=== PATIENT | female | born 1985 | race Caucasian/White ===

== ENCOUNTER 2016-11-30 20:38 | Emergency (ER) | payer OTHER ==
[~2016-11-30] VITALS: Ht 157.5 cm; Wt 99.8 kg
[~2016-11-30 20:38] MED LIST: LEVOTHYROXINE150 MCG PO; TRIDERM28.4 GM TOP; ULTRAM50 M1 PO
[2016-11-30 20:46] VITALS: BP 158/102
[2016-11-30] MEDS ORDERED: MULTI-DAY VITA1 EACH PO (21:47)
[2016-11-30] MEDS ORDERED: PROGESTERONE100 M2 PO (21:47)
[2016-11-30] MEDS ORDERED: PAIN & FEVER325 M1 PO (21:48)
--- NOTE | 2016-11-30 21:53 | ED SKIN/ALLERGY COMPLAINT ---
History of Present Illness General Chief Complaint: Skin Rash/ Abcess Stated Complaint: BILATERAL ARM RASH PER PT Source: patient Exam Limitations: no limitations Vital Signs & Intake/Output Vital Signs & Intake/Output Vital Signs Date Time Temp Pulse Resp B/P Pulse O2 O2 Flow FiO2 Ox Delivery Rate 11/306 96.0 106 18 158/102 97 Room Air Allergies Coded Allergies: NO KNOWN ALLERGIES (09/10/12) Reconcile Medications Acetaminophen (Pain & Fever) 325 MG TABLET 1 TAB PO PRN PAIN (Reported) Hydrocortisone (Cortizone-10) 1 % OINT...G. 1 HAZEL TOP BID ITCH Levothyroxine Sodium 150 MCG TABLET 1 TAB PO DAILY AC THYROID (Reported) Multivitamin (Multi-Day Vitamins) 1 EACH TABLET 1 TAB PO DAILY SUPPLEMENT ( Reported) Progesterone,Micronized (Progesterone) (Unknown Strength) CAPSULE (Unknown Dose) PO BID HRT- (Reported) Triage Note: PT 13WEEKS TO TRIAGE FOR C/O BURNING RASH TO BILAT UE AND BILAT LE x4DAYS. LAST OBGYN WNL A WEEK AGO. . Triage Nurses Notes Reviewed? yes Onset: Abrupt Duration: day(s): (few) Timing: recent history Severity: mild Location: thighs, forearms No Modifying Factors: none Associated Symptoms: ITCHING, BURNING : Yes Patient currently breastfeeds: No HPI: 31 year old female at 17 weeks gestation presents to the ER with rash to both arms and thighs for a few days. It feels dry and has a tingling sensation to it. No new exposures. No fever or chills. It is not erythematous but feels a a little raised. No rash on palms and soles. No known drug allergies. Past History Travel History Traveled to [place] past 21 day No Medical History Any Pertinent Medical History? see below for history Neurological: NONE EENT: NONE Cardiovascular: NONE Respiratory: NONE Gastrointestinal: NONE Hepatic: NONE Renal: NONE Musculoskeletal: NONE Psychiatric: NONE Endocrine: NONE Tetanus Vaccine: 02/26/16 Surgical History Surgical History: non-contributory Psychosocial History What is your primary language Wolof Tobacco Use: Never used Family History Hx Contributory? No Review of Systems Review of Systems Constitutional: Denies: chills, fever. EENTM: Reports: no symptoms. Respiratory: Denies: cough, short of breath, sputum production. Cardiovascular: Denies: chest pain, palpitations. GI: Denies: abdominal pain, nausea, vomiting. Genitourinary: Reports: no symptoms. Musculoskeletal: Reports: no symptoms. Skin: Reports: see HPI. Neurological/Psychological: Reports: no symptoms. Hematologic/Endocrine: Denies: bruising, bleeding, polyuria, polydipsia. Immunologic/Allergic: Reports: no symptoms. All Other Systems: Reviewed and Negative Physical Exam Physical Exam General Appearance: well developed/nourished, mild distress Head: atraumatic Eyes: Bilateral: PERRL, EOMI. Ears, Nose, Throat: normal pharynx, normal ENT inspection, hearing grossly normal Neck: normal inspection, supple Respiratory: normal breath sounds Cardiovascular: regular rate/rhythm Peripheral Pulses: 2+ radial (R), 2+ radial (L) Gastrointestinal: soft, non-tender Back: normal inspection Extremities: normal inspection, normal range of motion, no edema Neurologic/Psych: awake, alert, oriented x 3, normal mood/affect Lymphatic: no anterior cervical maria guadalupe Progress Differential Diagnosis: allergic reaction, contact dermatitis, urticaria Plan of Care: examination consistent with contact dermatitis. Topical hydrocortisone cream called into pharmacy. Departure Departure Time of Disposition: 2215 Disposition: HOME OR SELF CARE Condition: Stable Clinical Impression Primary Impression: Secondary Impressions: Dermatitis Referrals: PATIENT HAS NO PRIMARY CARE DR (PCP/Family) Additional Instructions: USE THE STEROID OINTMENT DIRECTED AND FOLLOW UP WITH YOUR OBGYN IN THE OFFICE. Departure Forms: Customer Survey General Discharge Information Prescriptions: Current Visit Scripts Hydrocortisone (Cortizone-10) 1 HAZEL TOP BID #1 TUBE
[2016-11-30] MEDS ORDERED: CORTIZONE-1028 G1 TOP (22:16)
== END 2016-11-30 22:26 ==
LOC: ERH 20:38
DX: O99.89 Other specified diseases and conditions complicating pregnancy, childbirth and the puerperium (principal); R21 Rash and other nonspecific skin eruption; Z3A.17 17 weeks gestation of pregnancy

== ENCOUNTER 2017-01-22 08:38 | Emergency (ER) | payer OTHER ==
[~2017-01-22] VITALS: Ht 157.5 cm; Wt 100.7 kg
[~2017-01-22 08:38] MED LIST changes: +CORTIZONE-1028 G1 TOP; +MULTI-DAY VITA1 EACH PO; +PAIN & FEVER325 M1 PO; +PROGESTERONE100 M2 PO
--- NOTE | 2017-01-22 09:21 | ED GENERAL ADULT ---
History of Present Illness General Chief Complaint: General Adult Stated Complaint: ABD PAIN, DIARRHEA, RENAE,SORE THROAT,21 WEEKS PREG Source: patient Exam Limitations: no limitations Vital Signs & Intake/Output Vital Signs & Intake/Output Vital Signs Date Time Temp Pulse Resp B/P B/P Pulse O2 O2 Flow FiO2 Mean Ox Delivery Rate 01/22 1258 97.2 94 20 126/58 98 Room Air 01/22 1113 98.3 88 20 127/60 98 Room Air 01/22 0915 Room Air 01/22 0844 97.4 102 20 153/89 99 Room Air Allergies Coded Allergies: NO KNOWN ALLERGIES (09/10/12) Reconcile Medications Levothyroxine Sodium 150 MCG TABLET 1 TAB PO DAILY AC THYROID (Reported) Multivitamin (Multi-Day Vitamins) 1 EACH TABLET 1 TAB PO DAILY SUPPLEMENT ( Reported) Penicillin V Potassium 500 MG TABLET 1 TAB PO BID STREP THROAT Triage Note: PT TO ED C/O ABD PAIN, N/D X 6 DAYS. PT IS 21 WEEKS . EDC 06/01/17. . [facility]. STATES PAIN COMES AND GOES. WORSE AFTER EATING. DENIES S/S. DENIES VAGINAL BLEEDING OR DISCHARGE. PT ALSO C/O B/L EAR PAIN AND SORE THROAT SINCE YESTERDAY. AFEBRILE. Triage Nurses Notes Reviewed? yes Onset: Abrupt Duration: hour(s): Timing: recent history : Yes Patient currently breastfeeds: No HPI: 01/22/17 9:47 AM 31-year-old female presents to the emergency department complaining of sore throat, diarrhea, generalized abdominal pain. The patient states that she's currently 21 weeks . She says she was in her usual state of health until approximately 48 hours ago. She developed abdominal cramping and diarrhea. She also has nasal congestion and rhinorrhea. She does have a prior history of strep throat. Quick strep test was positive. The onset of the symptoms were abrupt, the duration has been for 48 hours, the severity is significant; as her symptoms required her to come to the emergency department for care. She denies any vaginal bleeding or dysuria. She is a 4 para 3. Past History Travel History Traveled to [place] past 21 day No Medical History Any Pertinent Medical History? see below for history Neurological: NONE EENT: NONE Cardiovascular: NONE Respiratory: NONE Gastrointestinal: NONE Hepatic: NONE Renal: NONE Musculoskeletal: NONE Psychiatric: NONE Endocrine: hypothyroidism Tetanus Vaccine: 02/26/16 Surgical History Surgical History: non-contributory Psychosocial History What is your primary language Urdu Tobacco Use: Quit >30 days ago ETOH Use: denies use Illicit Drug Use: denies illicit drug use Family History Hx Contributory? No Review of Systems Review of Systems Constitutional: Reports: fever, malaise. EENTM: Reports: nasal congestion. Respiratory: Denies: short of breath. Cardiovascular: Denies: chest pain. GI: Denies: abdominal pain. Genitourinary: Reports: no symptoms. Musculoskeletal: Reports: muscle pain. Skin: Denies: rash. Neurological/Psychological: Reports: no symptoms. Hematologic/Endocrine: Denies: bruising, bleeding. Physical Exam Physical Exam General Appearance: well developed/nourished, alert, awake, anxious, mild distress Head: atraumatic, normal appearance Eyes: Bilateral: normal appearance, PERRL, EOMI. Ears, Nose, Throat: pharynx injected with exudates Neck: normal inspection, supple, full range of motion Respiratory: normal breath sounds, chest non-tender, no respiratory distress Cardiovascular: regular rate/rhythm Peripheral Pulses: 4+ radial (R), 4+ radial (L) Gastrointestinal: soft, non-tender, uterus at umbilicus Back: normal range of motion Extremities: normal inspection, normal range of motion, no edema Neurologic/Psych: no motor/sensory deficits, awake, alert, oriented x 3, normal gait Skin: intact, normal color, warm/dry Core Measures ACS in differential dx? No CVA/TIA Diagnosis: No Severe Sepsis Present: No Septic Shock Present: No Progress Differential Diagnoses I considered the following diagnoses in my evaluation of the patient: [ Preeclampsia, strep pharyngitis, pyelonephritis, UTI, threatened , influenza, HELP syndrome.] Plan of Care: Orders Procedure Date/time Status Add-on Test (ER Only) 01/22 1238 Active Add-on Test (ER Only) 01/22 1232 Active CULTURE,URINE 01/22 1213 Active HEPATITIS PANEL 01/22 1000 Complete URINALYSIS 01/23 936 Complete MONOSPOT TEST 01/23 936 Complete COMPREHENSIVE METABOLIC PANEL 01/23 936 Complete CBC WITHOUT DIFFERENTIAL 01/23 936 Complete THROAT CULTURE W/QUICK STREP 01/22 0846 Complete Laboratory Tests 01/22/17 1213: Urine Color YEL, Urine Clarity HAZY H, Urine pH 7.0, Ur Specific [place] 1.020, Urine Protein NEG, Urine Ketones 40 H, Urine Nitrite NEG, Urine Bilirubin NEG, Urine Urobilinogen 0.2, Ur Leukocyte Esterase SMALL H, Ur Microscopic SEDIMENT EXAMINED, Urine RBC 1-3, Urine WBC 3-5 H, Ur Epithelial Cells MANY H, Urine Bacteria MANY H, Urine Mucus RARE, Urine Hemoglobin NEG, Urine Glucose NEG 01/22/17 1000: Anion Gap 11, Estimated GFR > 60, BUN/Creatinine Ratio 14.0, Glucose 80, Calcium 9.2, Total Bilirubin 0.4, AST 67 H, ALT 61 H, Alkaline Phosphatase 88, Total Protein 6.7, Albumin 3.7, Globulin 3.0, Albumin/Globulin Ratio 1.2, CBC w Diff NO MAN DIFF REQ, RBC 4.40, MCV 83.2, MCH 28.2, RDW 13.8, MPV 9.8, Gran % 82.7 H , Lymphocytes % 10.9 L, Monocytes % 4.6, Eosinophils % 1.8, Basophils % 0 L, Absolute Granulocytes 7.3 H, Absolute Lymphocytes 1.0 L, Absolute Monocytes 0.4, Absolute Eosinophils 0.2, Absolute Basophils 0, PUBS MCHC 33.9, Hepatitis A IgM Ab NONREACTIVE, Hep Bs Antigen NONREACTIVE, Hep B Core IgM Ab Conf NONREACTIVE, Hepatitis C Antibody NONREACTIVE 01/22/17 0936: Infectious [place] Titer NEGATIVE Microbiology 01/22 1213 URINE ROUT: Urine Culture - RECD Initial ED EKG: none Departure Departure Disposition: STILL A PATIENT Condition: Stable Clinical Impression Primary Impression: Strep pharyngitis Secondary Impressions: Referrals: PATIENT HAS NO PRIMARY CARE DR (PCP/Family) Departure Forms: Customer Survey General Discharge Information Prescriptions: Current Visit Scripts Penicillin V Potassium 1 TAB PO BID #20 TAB Comments 01/22/17 12:27 pm Ultrasound shows good cardiac activity, right upper quadrant ultrasound negative for cholecystitis. The patient will be discharged on Pen-Vee K for strep pharyngitis. I considered HELP syndrome and preeclampsia. The patient's blood pressure repeated was 120/60, she has no proteinuria. Liver enzymes are only minimally elevated and she has no significant edema. I considered the diagnosis of preeclampsia and help syndrome. The patient's blood pressure is normal on repeat check. She has no proteinuria. 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 Last menstrual period 08/30/2016. COMPARISON: None LMP: 08/30/2016. Gestational age by maternal dates is 20 weeks 5 days. Estimated date of delivery by maternal dates is 06/06/2017. TECHNIQUE: Real time transabdominal imaging with color and M-mode Doppler. POSITION: Vertex PLACENTA: Anterior SAPPHIRE: 18.0 movements were identified. A heart rate is 142 bpm. MEASUREMENTS: biometric measurements are as follows: Biparietal diameter: 5.2 cm (21 weeks 6 days) Occipital Frontal Diameter: 6.62 cm (21 weeks 6 days) Head Circumference: 18.7 cm (21 weeks 1 day) Abdominal Circumference: 16.4 cm (21 weeks 4 days Femur Length: 3.72 cm (21) ESTIMATED WEIGHT: The EFW is 435 grams +/- 64 grams (0 lbs 15 oz +/- 2 oz). This is at the 88 percentile for a gestation of 20 weeks 5 days.. IMPRESSION: Single viable intrauterine gestation in vertex position with anterior placenta. No acute abnormalities are identified. movements are present and heart rate is normal. DICTATED BY: DONALD DAY MD DATE/TIME DICTATED:01/22/171154 TOOL WORKER:HYUN DATE/TIME TRANSCRIBED:01/22/171154 CONFIDENTIAL, DO NOT COPY WITHOUT APPROPRIATE AUTHORIZATION. <Electronically signed in Other Vendor System> SIGNED BY: DONALD DAY MD 01/22/17 1208 Critical Care Note Critical Care Note Critical Care Time: non-applicable
[2017-01-22 10:14] LABS: ABSOLUTE BASOPHIL COUNT 0 /CUMM (0.0-0.2); ABSOLUTE EOSINOPHIL COUNT 0.2 /CUMM (0.0-0.7); ABSOLUTE GRANULOCYTE CT 7.3 /CUMM (1.4-6.5); ABSOLUTE MONOCYTE COUNT 0.4 /CUMM (0.10-0.60); BASOPHIL % 0 % (0.0-2.0); EOSINOPHIL % 1.8 % (0-5); GRANULOCYTE % 82.7 % (42.2-75.2); HEMATOCRIT 36.6 % (37-47); MEAN CORPUSCULAR HGB 28.2 PG (27.0-31.0); MEAN CORPUSCULAR HGB CONC 33.9 G/DL (33.0-37.0); MEAN CORPUSCULAR VOLUME 83.2 FL (81.0-99.0); MEAN PLATELET VOLUME 9.8 FL (7.4-10.4); PLATELET COUNT 205 /CUMM (130-400); RBC DISTRIBUTION WIDTH 13.8 % (11.5-14.5); WHITE BLOOD CELL COUNT 8.8 /CUMM (4.8-10.8)
--- NOTE | 2017-01-22 12:06 | ULTRASOUND REPORT ---
EXAMINATION: US , VIABILITY CLINICAL INFORMATION: 21 weeks . Last menstrual period 08/30/2016. COMPARISON: None LMP: 08/30/2016. Gestational age by maternal dates is 20 weeks 5 days. Estimated date of delivery by maternal dates is 06/06/2017. TECHNIQUE: Real time transabdominal imaging with color and M-mode Doppler. POSITION: Vertex PLACENTA: Anterior SAPPHIRE: 18.0 movements were identified. A heart rate is 142 bpm. MEASUREMENTS: biometric measurements are as follows: Biparietal diameter: 5.2 cm (21 weeks 6 days) Occipital Frontal Diameter: 6.62 cm (21 weeks 6 days) Head Circumference: 18.7 cm (21 weeks 1 day) Abdominal Circumference: 16.4 cm (21 weeks 4 days Femur Length: 3.72 cm (21) ESTIMATED WEIGHT: The EFW is 435 grams +/- 64 grams (0 lbs 15 oz +/- 2 oz). This is at the 88 percentile for a gestation of 20 weeks 5 days.. IMPRESSION: Single viable intrauterine gestation in vertex position with anterior placenta. No acute abnormalities are identified. movements are present and heart rate is normal.
--- NOTE | 2017-01-22 12:12 | ULTRASOUND REPORT ---
EXAMINATION: US ABDOMEN LIMITED CLINICAL INFORMATION: Right upper quadrant pain. History cholelithiasis. COMPARISON: Ultrasound abdomen 05/26/2012, CT abdomen 01/08/2010. TECHNIQUE: Real-time imaging of the right upper quadrant abdominal viscera. FINDINGS: PANCREAS: The pancreatic body appears normal in size and echogenicity. There is no pancreatic ductal distention or retroperitoneal effusion demonstrated. LIVER: The liver is mildly enlarged measuring 20 cm in length. The liver surface is smooth. There is increased hepatic parenchymal echogenicity suggesting of hepatic steatosis. Some minor focal sparing is seen adjacent to the gallbladder fossa. There is no visible focal hepatic parenchymal lesion or intrahepatic biliary ductal dilatation. GALLBLADDER: There are dependent stones in the gallbladder. The gallbladder wall is normal in caliber. There is no subserosal edema or pericholecystic fluid. Negative Street's sign at real-time imaging. COMMON BILE DUCT: Normal in caliber measuring 0.4 cm in diameter. RIGHT KIDNEY: Normal. No hydronephrosis. No renal calculi or focal parenchymal lesions. The kidney measures 12.2 cm in maximum dimension. FREE FLUID: None. IMPRESSION: 1. Cholelithiasis. No gallbladder wall thickening or biliary ductal dilatation. 2. Hepatic steatosis. 3. Unremarkable right kidney. No right hydronephrosis.
[2017-01-22] MEDS ORDERED: PENICILLIN V P500 M1 PO (12:30)
[2017-01-22 12:58] VITALS: BP 126/58
== END 2017-01-22 12:58 ==
LOC: ERH 08:38
PROVIDERS: Emergency Medicine
DX: O99.512 Diseases of the respiratory system complicating pregnancy, second trimester (principal); J02.0 Streptococcal pharyngitis; Z87.891 Personal history of nicotine dependence
CPT/HCPCS: 81001; 87086

== ENCOUNTER → 2017-10-09 | Day surgery (SDC) | payer OTHER ==
[~2017-10-09] VITALS: Ht 154.9 cm; Wt 93.4 kg
[~2017-10-09] MED LIST changes: +EXCEDRIN EXTRA1 EACH PO; +EXTRA STRENGTH500 MG PO; +IBUPROFEN800 M1 PO; +LABETALOL HCL100 M1 PO; +MULTIVITAMINS1 EAC9 PO; +NEXPLANON68 M1; +PENICILLIN V P500 M1 PO; +PREVACID30 M1 PO; +TRI-PREVIFEM T1 EACH PO
--- NOTE | 2017-10-09 09:24 | Operative Report ---
Operative/Inv Procedure Report Surgery Date: 10/09/17 Name of Procedure: 1. Laparoscopic cholecystectomy 2. Core needle biopsy liver Pre-Operative Diagnosis: 1. Biliary colic 2. Richter Post-Operative Diagnosis: Same same Estimated Blood Loss: scant Surgeon/Finisher Merchant Products: Hardik CABRAL,Jewel Genao/Haleigh RUIZ Anesthesia: general endotracheal tube Specimens: Gallbladder Liver Operative/Procedure Note Note: After informed consent patient is brought to the operating room and laid supine. General anesthesia was obtained and her abdomen was prepped and draped. The skin above the umbilicus infiltrated with local anesthesia and a curvilinear incision made sharply. We came down through the subcutaneous tissues bluntly and grasped the fascia with Devin's. A fasciotomy was created sharply and stay sutures placed. The peritoneum was entered sharply and a blunt Dumont port was placed. Pneumoperitoneum was achieved. 3, 5 mm ports were placed in the epigastrium and right upper quadrant after local anesthesia was instilled and under direct vision the camera. She's placed in reverse Trendelenburg and rotated towards the left. The gallbladder is identified. It was grasped at the dome and retracted towards the head. Infundibulum was then grasped. Adhesions to the undersurface were taken down with blunt and cautery dissection. We dissected both sides the triangle Calot peritoneal tissue with cautery. The artery was medial and its normal anatomic position. It was cauterized medially to allow it to be mobilized away from the duct. Elma was cleared of areolar tissue with cautery. The arteries and duct were doubly ligated with clips. Gallbladder is removed from the fossa electrocautery. It was placed in Endo Catch bag and cinched up. 2 core needle biopsy of the liver was then taken using 18-gauge Daniel-Cut through the mid right abdominal port site. Hemostasis achieved with cautery. Right upper quadrant was and suction irrigated normal saline. Hemostasis achieved with cautery. The ports were then removed and the gallbladder delivered and passed off the field. The fascia was closed with 0 Vicryl suture. Skin incisions closed with 4-0 Vicryl. Steri-Strips and sterile dressing applied. Sponge and needle counts are correct. CC: Rito CABRAL,Rito; Tara De Paz APRN
== END ==
LOC: STS 05:03
DX: K80.10 Calculus of gallbladder with chronic cholecystitis without obstruction (principal); K75.81 Nonalcoholic steatohepatitis (NASH); I10 Essential (primary) hypertension; K21.9 Gastro-esophageal reflux disease without esophagitis; E03.9 Hypothyroidism, unspecified
CPT/HCPCS: 81025; 88304; 88307; 88313; C9399; J0131; J0690; J2250

== ENCOUNTER 2018-02-16 12:28 | Emergency (ER) | payer OTHER ==
[~2018-02-16] VITALS: Ht 154.9 cm; Wt 95.3 kg
[2018-02-16 14:59] LABS: ABSOLUTE BASOPHIL COUNT 0 /CUMM (0.0-0.2); ABSOLUTE EOSINOPHIL COUNT 0.3 /CUMM (0.0-0.7); ABSOLUTE GRANULOCYTE CT 7.2 /CUMM (1.4-6.5); ABSOLUTE LYMPH COUNT 2.3 /CUMM (1.2-3.4); ABSOLUTE MONOCYTE COUNT 0.5 /CUMM (0.10-0.60); BASOPHIL % 0.5 % (0.0-2.0); EOSINOPHIL % 3.1 % (0-5); GRANULOCYTE % 69.2 % (42.2-75.2); HEMATOCRIT 40.8 % (37-47); MEAN CORPUSCULAR HGB 25.4 PG (27.0-31.0); MEAN CORPUSCULAR HGB CONC 32.5 G/DL (33.0-37.0); MEAN CORPUSCULAR VOLUME 78.3 FL (81.0-99.0); PLATELET COUNT 369 /CUMM (130-400); RBC DISTRIBUTION WIDTH 16.3 % (11.5-14.5); RED BLOOD CELL CT 5.22 /CUMM (4.20-5.40); WHITE BLOOD CELL COUNT 10.4 /CUMM (4.8-10.8)
--- NOTE | 2018-02-16 15:30 | ED GENERAL ADULT ---
History of Present Illness General Chief Complaint: Abdominal Pain/Flank Pain Stated Complaint: BLOODY STOOL Source: patient, old records Exam Limitations: no limitations Vital Signs & Intake/Output Vital Signs & Intake/Output Vital Signs Date Time Temp Pulse Resp B/P B/P Pulse O2 O2 Flow FiO2 Mean Ox Delivery Rate 02/16 1809 97.8 82 16 135/85 97 Room Air 02/16 1550 98.2 90 20 129/72 100 Room Air 02/16 1509 Room Air Room Air 02/16 1310 96.8 98 20 126/82 99 Room Air Allergies Coded Allergies: NO KNOWN ALLERGIES (NONE 05/28/17) Reconcile Medications Acetaminophen (Extra Strength Non-Aspirin) 500 MG TABLET 2-3 TAB PO PRN PAIN (Reported) Aspirin/Acetaminophen/Caffeine (Excedrin Extra Strength Caplet) 250 MG-250 MG-65 MG TABLET 2 TAB PO PRN MIGRAINES (Reported) Etonogestrel (Nexplanon) 68 MG IMPLANT CONTROL (Reported) Labetalol HCl 100 MG TABLET 1 TAB PO BID BP (Reported) Lansoprazole (Prevacid) 30 MG CAPSULE.DR 1 CAP PO DAILY GI (Reported) Levothyroxine Sodium 150 MCG TABLET 1 TAB PO DAILY AC THYROID (Reported) Multiple Vitamin (Multivitamins) 1 EACH TABLET 1 TAB PO DAILY SUPPLEMENT ( Reported) Norgestimate-Ethinyl Estradiol (Tri-Previfem Tablet) [id number] 28 TABLET 1 TAB PO DAILY CONTROL (Reported) Triage Note: C/O MID ABDOMINAL PAIN INTERMITTATN X 1 WEEK, SEEN HERE 1 WEEK AGO FOR LLQ PAIN, HAD B/W AND CT SCAN DONE. NOW STATES SHE HAD A BLOODY BM 2 DAYS AGOM, TODAY HAD BRIGHT RED RECTAL BLEEDING WITH NAUSEA, DIZZINESS. Triage Nurses Notes Reviewed? yes Onset: Gradual Duration: day(s): (10) Timing: waxing and waning Severity: moderate No Modifying Factors: none : No Patient currently breastfeeds: No HPI: This is a 32-year-old female with history of obesity presenting with 10 days of intermittent cramping poorly localized abdominal pain. Patient was seen in the emergency department last week for similar presentation, underwent CAT scan and ultrasound which were noncontributory. She was discharged home and her cramping pain has persisted, usually occurring about 30-60 minutes after eating. She had some coating of her stool with blood earlier today and then had a worsening of her abdominal pain and subsequently had a large bowel movement with a moderate amount of dark blood. She has had no vaginal bleeding or discharge no dysuria and no fever/chills. She denies chest pain, difficulty breathing or diaphoresis. She does remark that she feels a bit lightheaded. She has a Nexplanon for control (Ronald Oconnor MD) Past History Travel History Traveled to [place] past 21 day No Medical History Any Pertinent Medical History? none Neurological: NONE EENT: NONE Cardiovascular: NONE Respiratory: NONE Gastrointestinal: NONE Hepatic: NONE Renal: NONE Musculoskeletal: NONE Psychiatric: NONE Endocrine: hypothyroidism Tetanus Vaccine: 02/26/16 Surgical History Surgical History: cholecystectomy Psychosocial History What is your primary language Indonesian Tobacco Use: Never used ETOH Use: occasional use Family History Hx Contributory? Yes (grandmother w Crohn's disease) (Ronald Oconnor MD) Review of Systems Review of Systems Constitutional: Reports: no symptoms. EENTM: Reports: no symptoms. Respiratory: Reports: no symptoms. Cardiovascular: Reports: no symptoms. GI: Reports: abdominal pain, nausea, bloody stool, changes in stool. Denies: vomiting. Genitourinary: Reports: no symptoms. Musculoskeletal: Reports: no symptoms. Skin: Reports: no symptoms. Neurological/Psychological: Reports: see HPI. Hematologic/Endocrine: Reports: no symptoms. (Ronald Oconnor MD) Physical Exam Physical Exam General Appearance: well developed/nourished, no apparent distress, alert, awake Head: atraumatic, normal appearance Eyes: Bilateral: normal appearance. Ears, Nose, Throat: normal pharynx, normal ENT inspection Neck: normal inspection, full range of motion Respiratory: normal breath sounds, chest non-tender, no respiratory distress Cardiovascular: regular rate/rhythm Gastrointestinal: soft, poorly localized abdominal ttp; non-peritoneal; no rebound Back: normal inspection Extremities: normal inspection Neurologic/Psych: no motor/sensory deficits, awake, alert, oriented x 3, normal gait, normal mood/affect Skin: intact, warm/dry Comments: Patient has mole, dark brown, guaiac positive stool in vault. No tenderness masses, no obvious hemorrhoids Core Measures ACS in differential dx? No CVA/TIA Diagnosis: No Sepsis Present: No Sepsis Focused Exam Completed? No (Ronald Oconnor MD) Progress Differential Diagnoses I considered the following diagnoses in my evaluation of the patient: Inflammatory bowel disease, infectious colitis, low suspicion for ischemic colitis. Low suspicion for coagulopathy. Doubt primary [employer]ACING [employer]PER[employer]OR process. Lower suspicion for upper GI bleed in this patient. No obvious risk factors for peptic ulcer disease. Plan of Care: Orders Procedure Date/time Status Add-on Test (ER Only) 02/16 1609 Active URINE 02/16 1525 Complete Add-on Test (ER Only) 02/16 1450 Active LIPASE 02/16 1447 Complete HEPATIC FUNCTION PANEL 02/16 1447 Complete URINALYSIS 02/16 1312 Complete CBC WITHOUT DIFFERENTIAL 02/16 1312 Complete BASIC METABOLIC PANEL 02/16 1312 Complete TYPE & SCREEN (NOT X-MATCH) 02/16 1312 Complete Laboratory Tests 02/16/18 1525: Urine Color YEL, Urine Clarity CLEAR, Urine pH 6.5, Ur Specific [place] 1.020, Urine Protein NEG, Urine Ketones NEG, Urine Nitrite NEG, Urine Bilirubin NEG, Urine Urobilinogen 0.2, Ur Leukocyte Esterase TRACE H, Ur Microscopic SEDIMENT EXAMINED, Urine RBC 1-3, Urine WBC 1-3 H, Ur Epithelial Cells MOD H, Urine Bacteria FEW H, Urine Mucus FEW, Urine Hemoglobin NEG, Urine Glucose NEG, Urine Test NEGATIVE 02/16/18 1447: Anion Gap 14, Estimated GFR > 60, BUN/Creatinine Ratio 26.7 H, Glucose 99, Calcium 9.5, Total Bilirubin 0.4, Direct Bilirubin 0.2, AST 20, ALT 42, Alkaline Phosphatase 79, Total Protein 8.1, Albumin 4.7, Lipase 97, CBC w Diff NO MAN DIFF REQ, RBC 5.22, MCV 78.3 L, MCH 25.4 L, MCHC 32.5 L, RDW 16.3 H, MPV 9.0 , Gran % 69.2, Lymphocytes % 22.5, Monocytes % 4.7, Eosinophils % 3.1, Basophils % 0.5, Absolute Granulocytes 7.2 H, Absolute Lymphocytes 2.3, Absolute Monocytes 0.5, Absolute Eosinophils 0.3, Absolute Basophils 0 Initial ED EKG: none Comments: In this otherwise healthy 32-year-old female with 10 days of cramping intermittent abdominal discomfort and no obvious hemodynamic compromise and normal labs, and a repeat normal CAT scan of her abdomen, low suspicion for acute underlying severe GI bleed. Clinically suspect colitis, possibly inflammatory bowel disease. Mild concern for GI cancer. Case is discussed with Dr. Sylvester the on-call for gastroenterology specialists. He agrees with plan for close follow-up with his service. Patient is given follow-up instructions and return precautions. (Ronald Oconnor MD) Departure Departure Disposition: HOME OR SELF CARE Condition: Stable Clinical Impression Primary Impression: Abdominal cramping Secondary Impressions: Bloody stool Referrals: Rito Veras MD (PCP/Family) Departure Forms: Customer Survey General Discharge Information (Ronald Oconnor MD) Resident Co-Sign Statement Statement: ED Attending supervision documentation- I saw and evaluated the patient. I have also reviewed all the pertinent lab results and diagnostic results. I agree with the findings and the plan of care as documented in the Resident's documentation. x I have reviewed the ED Record and agree with the Resident's documentation. [] Additions or exceptions (if any) to the Resident's note and plan are summarized below: [] (Blanche CABRAL,Vlad) Critical Care Note Critical Care Note Critical Care Time: non-applicable (Ronald Oconnor MD) ED Attending Observation Initial Observation Note: I have seen and personally examined CARYN MATAMOROS on 02/16/18 at 1820. I agree with the current emergency department documentation. The disposition (admission or discharge) is uncertain at this time, she needs a period of observation for the following reason(s): The ED Nurse caring for this patient has been personally informed as to what the patient is being observed for. (Ronald Oconnor MD)
--- NOTE | 2018-02-16 17:09 | CT SCAN REPORT ---
EXAMINATION: CT ABDOMEN AND PELVIS WITH CONTRAST CLINICAL INFORMATION: Abdominal pain. Bloody stool. COMPARISON: CT 02/09/2018 TECHNIQUE: Multidetector volumetric imaging was performed of the abdomen and pelvis following IV administration of 95 mL of Optiray 320 intravenous contrast. Sagittal and coronal reformatted images were obtained on the technologist's workstation. DLP: 931 mGy-cm FINDINGS: LUNG BASES: The visualized lung bases are unremarkable. LIVER, GALLBLADDER, AND BILIARY TREE: The liver is relatively low in attenuation. No lesion identified. No intrahepatic biliary dilatation. Gallbladder is surgically absent. PANCREAS: Unremarkable. SPLEEN: The spleen enhances homogeneously and is normal in size. There are 3 enhancing round masses at the inferior pole of the spleen which demonstrate a similar enhancement profile. These are consistent with an old.. ADRENAL GLANDS: Unremarkable. KIDNEYS AND URETERS: The kidneys are normal in size, shape, and attenuation. No hydronephrosis, hydroureter, or calculi seen. No perinephric stranding. BLADDER: Unremarkable. GASTROINTESTINAL TRACT: The small and large bowel are unremarkable. The appendix is unremarkable. ABDOMINAL WALL: No significant hernia is appreciated. LYMPH NODES: Scattered mesenteric lymph nodes which do not meet size compared to for pathology.. VASCULAR: Unremarkable. PELVIC VISCERA: Unremarkable. OSSEOUS STRUCTURES: Unremarkable. IMPRESSION: Hepatic steatosis. No acute intra-abdominal or pelvic findings. Status post cholecystectomy
[2018-02-16 18:09] VITALS: BP 135/85
== END 2018-02-16 18:21 ==
LOC: ERH 12:28
PROVIDERS: Emergency Medicine
DX: K92.1 Melena (principal); R10.84 Generalized abdominal pain
CPT/HCPCS: 74177; 81001; 81025

== ENCOUNTER 2018-03-26 08:41 | Emergency (ER) | payer OTHER ==
[~2018-03-26] VITALS: Ht 154.9 cm; Wt 95.3 kg
--- NOTE | 2018-03-26 09:30 | ED CARDIAC/CP/PALPITATIONS ---
History of Present Illness General Chief Complaint: Chest Pain Stated Complaint: CHEST PAIN RADIATES TO LEFT SHOULDER AND BACK Source: patient Exam Limitations: no limitations Vital Signs & Intake/Output Vital Signs & Intake/Output Vital Signs Date Time Temp Pulse Resp B/P B/P Pulse O2 O2 Flow FiO2 Mean Ox Delivery Rate 03/26 1103 97.8 86 18 120/79 96 03/26 0926 Room Air Room Air 03/26 0852 98.1 113 20 142/92 96 Room Air Allergies Coded Allergies: NO KNOWN ALLERGIES (NONE 05/28/17) Reconcile Medications Cyclobenzaprine HCl 10 MG TABLET 1 TAB PO QPM PRN muscle strain Etonogestrel (Nexplanon) 68 MG IMPLANT CONTROL (Reported) Labetalol HCl 100 MG TABLET 1 TAB PO BID BP (Reported) Lansoprazole (Prevacid) 30 MG CAPSULE.DR 1 CAP PO DAILY GI (Reported) Levothyroxine Sodium 150 MCG TABLET 1 TAB PO DAILY AC THYROID (Reported) Meloxicam (Mobic) 15 MG TABLET 1 TAB PO DAILY PRN pain Triage Note: CP, LEFT SHOULDER PAIN THAT RADIATES DOWN ARM AND BACK X 1 WEEK, STATES PAIN GETTING WORSE. Triage Nurses Notes Reviewed? yes Onset: Gradual Duration: day(s): Timing: recent history Quality/Severity: moderate Location: left chest and back : No Patient currently breastfeeds: No HPI: 32yo female presents to ED complaining of left anterior chest pain and back pain x 1 week. PAtient states her pain has gradually increased over the past several days, worse today. Patient describes pain as sharp, pleuritic, worse with cough. Back pain radiates down left arm. Patient reports cough productive of green sputum for the past several days with mild shortness of breath. She denies fevers, chills, abdominal pain, vomiting. Past History Travel History Traveled to [place] past 21 day No Medical History Any Pertinent Medical History? see below for history Neurological: NONE EENT: NONE Cardiovascular: NONE Respiratory: NONE Gastrointestinal: GERD Hepatic: NONE Renal: NONE Musculoskeletal: NONE Psychiatric: NONE Endocrine: hypothyroidism Tetanus Vaccine: 02/26/16 Surgical History Surgical History: cholecystectomy Psychosocial History What is your primary language Belarusian Tobacco Use: Never used ETOH Use: occasional use Illicit Drug Use: denies illicit drug use Family History Hx Contributory? No Review of Systems Review of Systems Constitutional: Reports: no symptoms. EENTM: Reports: no symptoms. Respiratory: Reports: see HPI. Cardiovascular: Reports: see HPI. GI: Reports: no symptoms. Genitourinary: Reports: no symptoms. Musculoskeletal: Reports: see HPI. Skin: Reports: no symptoms. Neurological/Psychological: Reports: no symptoms. Hematologic/Endocrine: Reports: no symptoms. Immunologic/Allergic: Reports: no symptoms. All Other Systems: Reviewed and Negative Physical Exam Physical Exam General Appearance: well developed/nourished, no apparent distress, alert, awake Head: atraumatic, normal appearance Eyes: Bilateral: normal appearance. Ears, Nose, Throat: hearing grossly normal Neck: normal inspection, supple, full range of motion Respiratory: normal breath sounds, no respiratory distress, lungs clear, left sided anterior chest tenderness Cardiovascular: regular rate/rhythm, normal peripheral pulses Peripheral Pulses: 2+ radial (R), 2+ radial (L) Gastrointestinal: normal bowel sounds, soft, non-tender, no organomegaly Back: normal inspection, normal range of motion, left sided upper back tenderness Extremities: normal inspection, normal range of motion Neurologic/Psych: awake, alert, oriented x 3 Skin: intact, normal color, warm/dry Core Measures ACS in differential dx? Yes CVA/TIA Diagnosis No Sepsis Present: No Sepsis Focused Exam Completed? No Progress Differential Diagnosis: AMI, atrial fibrillation, costochondritis, musculoskeletal pain, myocarditis, pericarditis, pneumonia, pneumothorax, pulmonary embolism, unstable angina Plan of Care: Orders Procedure Date/time Status Add-on Test (ER Only) 03/26 0936 Active D-DIMER 03/26 09 Complete URINE 03/26 912 Complete URINALYSIS 03/26 09 Complete TROPONIN LEVEL 03/26 0857 Complete HUMAN BETA HCG SCREEN 03/26 0857 Complete COMPREHENSIVE METABOLIC PANEL 03/26 0857 Complete CBC WITHOUT DIFFERENTIAL 03/26 08 Complete EKG 03/26 0842 Active Laboratory Tests 03/26/18 0922: Anion Gap 15, Estimated GFR > 60, BUN/Creatinine Ratio 28.3 H, Glucose 119 H, Calcium 9.5, Total Bilirubin 0.2, AST 21, ALT 46, Alkaline Phosphatase 88, Troponin I < 0.01, Total Protein 7.7, Albumin 4.5, Globulin 3.2, Albumin/ Globulin Ratio 1.4, Total Beta HCG NEGATIVE, D-Dimer High Sensitivty < 200, CBC w Diff NO MAN DIFF REQ, RBC 4.88, MCV 77.8 L, MCH 26.1 L, MCHC 33.5, RDW 15.6 H, MPV 8.6, Gran % 76.4 H, Lymphocytes % 15.6 L, Monocytes % 6.1, Eosinophils % 1.9, Basophils % 0, Absolute Granulocytes 10.8 H, Absolute Lymphocytes 2.2, Absolute Monocytes 0.9 H, Absolute Eosinophils 0.3, Absolute Basophils 0 03/26/18 0913: Urine Color YEL, Urine Clarity CLEAR, Urine pH 6.0, Ur Specific [place] 1.025, Urine Protein NEG, Urine Ketones NEG, Urine Nitrite NEG, Urine Bilirubin NEG, Urine Urobilinogen 0.2, Ur Leukocyte Esterase TRACE H, Ur Microscopic SEDIMENT EXAMINED, Urine WBC 5-10 H, Ur Epithelial Cells MANY H, Urine Bacteria FEW H, Urine Mucus FEW, Urine Hemoglobin NEG, Urine Glucose NEG, Urine Test NEGATIVE Patient's EKG is in sinus rhythm without acute ischemic changes. Patient's troponin enzyme is negative. She is young and otherwise healthy, low suspicion for acute cardiac pathology given this patient's atypical chest pain. Chest pain has been present for 1 week, is reproducible and pleuritic. Chest pain is more likely related to muscle strain versus costochondritis. Pulmonary embolism was considered however d-dimer is negative, low suspicion for pulmonary embolism in this patient. Her vital signs are stable, she is in no acute distress. Patient to begin anti-inflammatories and muscle relaxants and follow up with her primary care doctor. She was given strict return precautions which she understands and agrees with. The patient was discussed with Dr. Aguiar who agrees the plan of care. Diagnostic Imaging: Viewed by Me: Radiology Read. Discussed w/RAD: Radiology Read. CXR Impression: PATIENT: CARYN MATAMOROS PRESENT AGE: 32 PATIENT ACCOUNT NO: [id number] : 85 LOCATION: [facility] ORDERING PHYSICIAN: Demi RUIZ SERVICE DATE: 03/26/18 EXAM TYPE: RAD - XRY-CHEST XRAY, TWO VIEWS EXAMINATION: XR CHEST CLINICAL INFORMATION: Chest pain. COMPARISON: 06/05/2017 TECHNIQUE: 2 views of the chest were obtained. FINDINGS: The lungs are well-inflated and clear with exception of a small, thin opacity of scarring or atelectasis in the left lower lung. Trachea is midline in position. No interstitial disease, focal consolidation, mass, pneumothorax or pleural effusion. The cardiomediastinal silhouette is normal in size. The mediastinal, hilar and diaphragmatic contours are normal. Bones are unremarkable. The examined upper abdomen is notable for cholecystectomy clips. IMPRESSION: No acute pulmonary disease. DICTATED BY: Jefferson Garcia MD DATE/TIME DICTATED:08/03 ANALYTICAL ENGINEER:HYUN DATE/TIME TRANSCRIBED:03/26/181030 CONFIDENTIAL, DO NOT COPY WITHOUT APPROPRIATE AUTHORIZATION. <Electronically signed in Other Vendor System> SIGNED BY: Jefferson Garcia MD 03/26/18 1035 Initial ED EKG: sinus tachycardia @109bpm, artifact present, nonspecific ST changes Prior EKG: changed (06/05/17) Departure Departure Disposition: HOME OR SELF CARE Condition: Stable Clinical Impression Primary Impression: Chest pain Qualifiers: Chest pain type: unspecified Qualified Code: R07.9 - Chest pain, unspecified Secondary Impressions: Back pain Qualifiers: Back pain location: back pain in other location Chronicity: acute Qualified Code: M54.9 - Dorsalgia, unspecified Referrals: Rito Veras MD (PCP/Family) Additional Instructions: Take meloxicam as prescribed as needed for pain. Take flexoril as prescribed for muscle strain. Follow up with your primary care doctor this week. Return with worsening symptoms or concerns. Please note that there might be incidental findings in your evaluation that are unrelated to the current emergency department visit. Please notify your primary care doctor about this emergency department visit in order to obtain and review all of the testing performed so that these incidental findings can be monitored as needed. If you had an x-ray performed, please understand that some fractures may not be seen on the initial set of x-rays. If your symptoms persist you might need a repeat set of x-rays to check for such a fracture. If you had a laceration evaluated, please understand that foreign bodies such as glass or wood may not be visible to the naked eye or on plain x-rays. If the wound becomes red, swollen, increasingly more painful or if there is any drainage from the wound, please have it reevaluated by a physician for the possibility of a retained foreign body. If you're unable to follow up as outlined in the discharge instructions please return to the emergency department. Thank you for choosing the [facility] Emergency Department for your care. It was a pleasure to serve you today. Departure Forms: Customer Survey General Discharge Information Prescriptions: Current Visit Scripts Meloxicam (Mobic) 1 TAB PO DAILY PRN pain #15 TAB Cyclobenzaprine HCl 1 TAB PO QPM PRN muscle strain #10 TAB Critical Care Note Critical Care Note Critical Care Time: non-applicable
[2018-03-26 09:32] LABS: ABSOLUTE BASOPHIL COUNT 0 /CUMM (0.0-0.2); ABSOLUTE EOSINOPHIL COUNT 0.3 /CUMM (0.0-0.7); ABSOLUTE GRANULOCYTE CT 10.8 /CUMM (1.4-6.5); ABSOLUTE LYMPH COUNT 2.2 /CUMM (1.2-3.4); ABSOLUTE MONOCYTE COUNT 0.9 /CUMM (0.10-0.60); BASOPHIL % 0 % (0.0-2.0); EOSINOPHIL % 1.9 % (0-5); GRANULOCYTE % 76.4 % (42.2-75.2); HEMATOCRIT 37.9 % (37-47); MEAN CORPUSCULAR HGB 26.1 PG (27.0-31.0); MEAN CORPUSCULAR HGB CONC 33.5 G/DL (33.0-37.0); MEAN CORPUSCULAR VOLUME 77.8 FL (81.0-99.0); MEAN PLATELET VOLUME 8.6 FL (7.4-10.4); PLATELET COUNT 399 /CUMM (130-400); RBC DISTRIBUTION WIDTH 15.6 % (11.5-14.5); RED BLOOD CELL CT 4.88 /CUMM (4.20-5.40); WHITE BLOOD CELL COUNT 14.1 /CUMM (4.8-10.8)
--- NOTE | 2018-03-26 10:35 | RADIOLOGY REPORT ---
EXAMINATION: XR CHEST CLINICAL INFORMATION: Chest pain. COMPARISON: 06/05/2017 TECHNIQUE: 2 views of the chest were obtained. FINDINGS: The lungs are well-inflated and clear with exception of a small, thin opacity of scarring or atelectasis in the left lower lung. Trachea is midline in position. No interstitial disease, focal consolidation, mass, pneumothorax or pleural effusion. The cardiomediastinal silhouette is normal in size. The mediastinal, hilar and diaphragmatic contours are normal. Bones are unremarkable. The examined upper abdomen is notable for cholecystectomy clips. IMPRESSION: No acute pulmonary disease.
[2018-03-26 11:03] VITALS: BP 120/79
[2018-03-26] MEDS ORDERED: CYCLOBENZAPRINE10 M1 PO (12:23)
[2018-03-26] MEDS ORDERED: MOBIC15 M1 PO (12:23)
== END 2018-03-26 12:23 ==
LOC: ERH 08:41
PROVIDERS: Physician Assistant
DX: R07.89 Other chest pain (principal)
CPT/HCPCS: 71046; 81001; 81025; 93005; 93010; 96372; J1885